=== PATIENT | female | born 1955 | race Caucasian/White ===

== ENCOUNTER 2019-04-07 14:18 | Inpatient (IN) | payer OTHER, BC ==
[~2019-04-07] VITALS: Ht 167.6 cm; Wt 125.2 kg
--- NOTE | ~2019-04-07 | HC ---
[facility] [place] [address] [place] [address] CONSULTATION Name: MARVEL CID Room #: 457-P [facility] IN ..#: [id number] Admission: 04/07/19 Attend Phys: Chiquita Lozano MD Discharge: Date of : 57 Report #: [id number] THIS REPORT FOR: //name// CC: BRENDEN physician/PCP Chiquita Lozano DATE OF SERVICE: 04/09/2019 WOUND CARE CONSULTATION REQUESTING PHYSICIAN: Dr. Lozano. CHIEF COMPLAINT: Multiple skin abscesses. HISTORY OF PRESENT ILLNESS: This is a 63-year-old white female with longstanding history of poorly controlled diabetes, who was admitted through the Emergency Department for multiple boils and abscesses throughout her body, specifically in her gluteal region and right posterior thigh. The patient had I and D performed of the right thigh wound by the primary care physician. We have been asked to see the patient for further care of the rest of the superficial abscesses. The patient states she has had these for several weeks if not months. They do cause her some mild pain, but more specifically itching. The patient states that she denies fevers or chills. The patient has not tried anything specifically topically for these, but has been on antibiotics since she was admitted to the hospital 48 hours ago. The patient was seen by General Surgery, who performed an ultrasound of the right thigh and it was felt that there was nothing else that need to be drained. PAST MEDICAL HISTORY: Significant for type 2 diabetes, significant peripheral diabetic neuropathy, diabetic retinopathy, obesity, fibromyalgia, hypothyroidism, hyperlipidemia. CURRENT MEDICATIONS: Multiple, I reviewed the patient's medication list. DRUG ALLERGIES: PENICILLIN AND CODEINE. SOCIAL HISTORY: The patient smokes 1 pack of cigarettes daily. Denies alcohol use. FAMILY HISTORY: Not pertinent to current medical condition. REVIEW OF SYSTEMS: CONSTITUTIONAL: The patient denies fevers or chills. NEUROLOGIC: The patient complains of overall generalized weakness, but no isolated weakness in arms or legs. EYES: No complaints. [facility] [address] [place] [address] CONSULTATION Name: MARVEL CID Room #: 457-P [facility] IN [facility].#: [id number] Admission: 04/07/19 Attend Phys: Chiquita Lozano MD Discharge: Date of : 57 Report #: [id number] ENT: No complaints. CARDIAC: The patient denies chest pain, palpitations or peripheral edema. RESPIRATORY: The patient denies shortness of breath, cough or wheezes. GASTROINTESTINAL: The patient denies nausea, vomiting, abdominal pain. GENITOURINARY: The patient denies urgency or frequency. MUSCULOSKELETAL: No complaints. SKIN: There are multiple superficial abscesses/folliculitis over bilateral gluteal region with fungal rash as well as one discrete abscess on the right posterior medial thigh. PHYSICAL EXAMINATION: VITAL SIGNS: Temperature 36.9, pulse 78, respirations 14, BP 136/93. GENERAL: This is an alert and oriented x 3, pleasant, morbidly obese white female who is in no obvious distress. HEENT: Normocephalic, atraumatic. Mucous membranes are dry. Pupils are round. Sclerae white. NECK: Supple, nontender. LUNGS: Clear. HEART: Regular. ABDOMEN: Obese, soft, nontender. EXTREMITIES: There are a few scattered superficial abscesses on the abdominal wall, which are slightly tender and indurated. Over the gluteal region, there are multiple areas of folliculitis and some discrete small superficial abscesses with significant amount of induration, but no fluctuance. There is a fungal rash noted in the gluteal region as well. EXTREMITIES: The patient moves all extremities without difficulty. On the right posterior medial thigh, there is an area of previously incised abscess, which has minimal bloody drainage without fluctuance. Distal pulses are intact. NEUROLOGIC: Cranial nerves 2-12 grossly intact. Motor and sensory grossly intact. LABORATORY DATA: White count 7.6, hemoglobin 11.2. Sed rate 104, BUN 12, creatinine 0.7, hemoglobin A1c is 10.3, albumin is 2.7. Soft tissue ultrasound of the right posterior thigh bilateral gluteal regions reveals no significant areas for drainage. IMPRESSION: 1. Multiple superficial abscesses/folliculitis bilateral gluteal region and right posterior medial thigh. 2. Diabetes mellitus type 2. 3. Morbid obesity. 4. Protein-calorie malnutrition - severe, albumin 2.7. 5. History of fibromyalgia. 6. Fungal rash in the gluteal region. PLAN: At this time, we will start Lotrisone cream for the fungal rash in the [address] [address] CONSULTATION Name: MARVEL CID Room #: 457-P [facility] IN M.R.#: [id number] Admission: 04/07/19 Attend Phys: Chiquita Lozano MD Discharge: Date of : 57 Report #: [id number] gluteal region twice daily. The patient will continue on IV antibiotics at this time. There are no signs of any abscess that needs to be drained at this time. We will try to maximize patient's oral protein supplementation for healing. We will utilize physical and occupational therapy for strengthening and continue all other current medications. By: [id number] Ajith Pham MD /chaya
[~2019-04-07 14:18] MED LIST: AMITRIPTYLINE150 MG PO; CLARITIN10 MG PO; COLACE100 MG PO; CYMBALTA30 MG PO; CYMBALTA60 MG PO; FENTANYL PA50 MCG/HR TRANSDERM; GLUCOTROL5 MG PO; KLONOPIN1 MG PO; LEVAQUIN 500 M500 M1 PO; LEVOTHYROXIN0.075 MG PO; LIDODERM 5%1 PATC1 TRANSDERM; LYRICA100 MG PO; METFORMIN HCL500 MG PO; OMEPRAZOLE20 M2 PO; OSENI 25-15 MG1 EACH PO; OXYCONTIN10 M1 PO; TERBINAFINE HC250 MG PO; TRAMADOL 50 MG50 MG PO; TRAZODONE 150150 M1 PO; ULTRAM 50MG TAB50 MG PO; VALACYCLOVIR1000 MG PO; ZESTORETIC 10-1 EACH PO
[2019-04-07 14:21] VITALS: BP 153/87
[2019-04-07] MEDS ORDERED: LIPITOR 20 MG T20 M1 PO (15:10)
[2019-04-07] MEDS ORDERED: GLIMEPIRIDE4 MG PO (15:11)
[2019-04-07] MEDS ORDERED: NAPROSYN500 M1 PO (15:12)
[2019-04-07] MEDS ORDERED: NEURONTIN 300M300 M2 PO (15:13)
[2019-04-07] MEDS ORDERED: FLEXERIL PO (15:15)
[2019-04-07] MEDS ORDERED: TRULICITY0.75 MG/0. SUBQ (15:16)
[2019-04-07] MEDS ORDERED: REMERON15 M2 PO (15:16)
[2019-04-07 16:11] LABS: URINE BILIRUBIN NEGATIVE (Negative); URINE BLOOD NEGATIVE (Negative); URINE CLARITY CLEAR; URINE COLOR YELLOW; URINE GLUCOSE-RANDOM* 3+ (Negative); URINE KETONES NEGATIVE (Negative); URINE LEUKOCYTES-REFLEX TRACE (Negative); URINE NITRITE-REFLEX NEGATIVE (Negative); URINE PROTEIN (DIPSTICK) NEGATIVE (Negative); URINE UROBILINOGEN 0.2 E.U./dl (0.2-1.0)
[2019-04-07 16:18] LABS: AMP/METHAMP POSITIVE (Negative); BARBITURATES Negative (Negative); BENZODIAZEPINES Negative (Negative); COCAINE Negative (Negative); METHADONE Negative (Negative); OPIATES Negative (Negative); PCP Negative (Negative)
[2019-04-07 16:40] LABS: ABSOLUTE NEUTROPHILS 10.4 thou/uL (1.4-8.2); BASOPHILS 0.6 % (0.0-2.0); HEMATOCRIT 40.9 % (37.0-47.0); HEMOGLOBIN 13.2 gm/dL (12.0-15.0); LYMPHOCYTES 12.9 % (24.0-44.0); MCH 27.4 pg (26.0-34.0); MCHC 32.4 g/dL (28.0-37.0); MCV 84.5 fL (80.0-100.0); MONOCYTES 5.1 % (1.0-8.0); PLATELET COUNT 472 thou/uL (150-400); POLYS 80.4 % (36.0-66.0); RBC 4.84 mil/uL (4.20-5.00); RDW 14.3 % (10.5-14.5)
[2019-04-07 16:47] LABS: CALCIUM 8.7 mg/dL (8.5-10.1); POTASSIUM 3.8 mmol/L (3.5-5.1)
[2019-04-07 16:52] LABS: ALBUMIN 2.7 g/dL (3.4-5.0); TOTAL BILIRUBIN 0.3 mg/dL (<0.1-1.0); TOTAL PROTEIN 8.6 g/dL (6.4-8.2)
[2019-04-07 18:03] VITALS: BP 159/96
[2019-04-07 18:53] VITALS: BP 174/86
[2019-04-07 19:24] VITALS: BP 152/81
--- NOTE | 2019-04-07 19:30 | NUR ---
Pt. admitted to the unit from the emergency room accompanied by staff. She was able to transfer from the cart to the bed with one assist. Ad- mission assessment and history is completed. Pt. oriented to staff and room. Bed alarm is on.
[2019-04-08 00:06] VITALS: BP 126/66
[2019-04-08 03:12] VITALS: BP 126/71
[2019-04-08 05:07] LABS: IgG 1933 mg/dL (700-1600); IgM 91 mg/dL (26-217)
--- NOTE | 2019-04-08 05:33 | NUR ---
Pt. rested quietly at intervals during the night when checked on during frequent rounds. She was given pain meds (see emar) for c/o back pain and a headache with some relief noted. Pictures taken of her multiple boils (poc). Nystatin cream applied to red candi area and up under bilateral breasts. Bed alarm is on.
[2019-04-08 06:08] LABS: IgA 875 mg/dL (87-352)
[2019-04-08 06:32] LABS: HEMATOCRIT 35.2 % (37.0-47.0); HEMOGLOBIN 11.3 gm/dL (12.0-15.0); MCH 27.1 pg (26.0-34.0); MCV 84.9 fL (80.0-100.0); RBC 4.15 mil/uL (4.20-5.00); RDW 14.5 % (10.5-14.5); WBC 8.8 thou/uL (4.0-11.0)
[2019-04-08 06:48] LABS: CALCIUM 8.1 mg/dL (8.5-10.1); CREATININE 0.9 mg/dL (0.6-1.0); POTASSIUM 3.3 mmol/L (3.5-5.1)
[2019-04-08 08:06] VITALS: BP 110/69
[2019-04-08 11:15] VITALS: BP 123/75
--- NOTE | 2019-04-08 11:31 | NUR ---
WOUND CARE NOTE, BLISTERING WOUNDS RIGHT THIGH AND R BUTTOCKS AREA. SCANT DRAINAGE FROM BUTTOCK WOUND, FAIR AMT THIGH WOUND W/ ERYTHEMA PRESENT, RECOMMEND CLEANSING W/ NS AND APPLY BORDER FOAM DRSG DAILY AND PRN, PT COOPERATIVE W/ CARE, DRYING MACHINE OPERATOR PACKAGE YARNS INFORMED
--- NOTE | 2019-04-08 14:09 | NUR ---
Assess due to RD consult received for diabetes. Pt admitted with sepsis, and boils to skin which have required drainage today. Hx DM, unknown control-endocronologist pending eval. Wt extreme class III obesity, BMI 44.7. Pt just returned from procedure and was being attended to by staff. BG 171-186. Will follow up again tomorrow 04/09 to see if pt has any questions regarding diet for diabetes. Otherwise presents low nutrition risk
[2019-04-08 14:45] VITALS: BP 138/75
--- NOTE | 2019-04-08 16:04 | NUR ---
Assumed pt care at 7am.Assessment completed.vss.Pt wanted to eat and drink as soon as possible but there wasn't any order for diet.Dr Sharp noted and okay pt to eat.Breakfast ordered and given.Around 10am,received call from Dr Shea that he will seept later today and decide on taking her to surgery in am.Drsg change done by rn team leader and mimi freedman nsg student.Tramadol student.Tramadol given for generalized pain with complete relief.Dr Cole here,order noted.Will continue to monitor.
[2019-04-08 20:25] VITALS: BP 141/87
[2019-04-08 23:07] LABS: GLYCOHEMOGLOBIN (HGB A1C) 10.6 % (4.8-5.6)
[2019-04-09 00:08] LABS: GLYCOHEMOGLOBIN (HGB A1C) 10.3 % (4.8-5.6)
--- NOTE | 2019-04-09 05:05 | NUR ---
PT IS A/O X4.PT COMPLAIN OF PAIN AND MANAGED WITH MORPHINE.PT IS ACHS ACCUCHCEKS.PT IS UP TO BSC WITH SBA.PT NPO FROM MIDNIGHT.CONTINUE POC
[2019-04-09 05:46] LABS: CALCIUM 8.4 mg/dL (8.5-10.1); CREATININE 0.7 mg/dL (0.6-1.0); MAGNESIUM 1.4 mg/dL (1.8-2.4)
[2019-04-09 05:50] LABS: HEMATOCRIT 35.4 % (37.0-47.0); HEMOGLOBIN 11.2 gm/dL (12.0-15.0); MCH 27.1 pg (26.0-34.0); MCHC 31.7 g/dL (28.0-37.0); MCV 85.5 fL (80.0-100.0); RBC 4.14 mil/uL (4.20-5.00); RDW 14.1 % (10.5-14.5); WBC 7.6 thou/uL (4.0-11.0)
[2019-04-09 06:08] LABS: POTASSIUM 4.3 mmol/L (3.5-5.1)
--- NOTE | 2019-04-09 08:08 | HC ---
[facility] [place] [address] [place] [address] CONSULTATION Name: MARVEL CID Room #: 457-P [facility] IN .R.#: [id number] Admission: 04/07/19 Attend Phys: Chiquita Lozano MD Discharge: Date of : 57 Report #: [id number] THIS REPORT FOR: //name// CC: BRENDEN physician/PCP PRIMARY CARE Chiquita Lozano DATE OF SERVICE: 04/08/2019 ENDOCRINE CONSULTATION NOTE CONSULTING PHYSICIAN: Dr. Chiquita Lozano REASON FOR CONSULTATION: Uncontrolled type 2 diabetes mellitus, hypothyroidism. HISTORY OF PRESENT ILLNESS: This is a 63-year-old female patient whose medical background is significant for multiple medical issues, including type 2 diabetes mellitus, severe peripheral diabetic neuropathy, fibromyalgia and hypothyroidism. The patient presented yesterday with complaints of back pain and diffuse boils and abscesses throughout her body, but especially with a prominent one over the back of her right thigh and buttock. It seems that she has been dealing with these for a while. When asked specifically about type 2 diabetes mellitus, the patient indicated that she has had dealt with diabetes for many years. She is typically maintained on a regimen of metformin 1000 mg b.i.d., glimepiride 4 mg daily, in addition to Trulicity 0.75 mg weekly. She indicates that she has not been able to obtain Trulicity for over a month due to her falling into the doughnut hole and not being able to afford it. She does not check her blood glucose at home, whatsoever, due to painful neuropathy, but she denies issues with hypoglycemia symptoms. Also, the patient has severe peripheral diabetic neuropathy that is disruptive, painful and causes a great deal of discomfort for her,. She is maintained on gabapentin at a dose of 1200 mg b.i.d., but without much relief. Also, the patient notes issues pertaining to diabetic retinopathy and notes that she has had some ophthalmologic interventions performed over the years. The patient is not aware of difficulties pertaining to diabetic nephropathy or renal insufficiency. She has hyperlipidemia and is maintained on atorvastatin therapy for that. The patient has been hypothyroid for over 10 years and is currently on levothyroxine 75 mcg daily. The patient indicates that she is compliant with the intake of her levothyroxine. She has been fatigued and tired lately. She [address] [address] CONSULTATION Name: MARVEL CID Room #: 457-P [facility] IN ..#: [id number] Admission: 04/07/19 Attend Phys: Chiquita Lozano MD Discharge: Date of : 57 Report #: [id number] denies significant body weight changes, but she is obese at baseline. REVIEW OF SYSTEMS: CONSTITUTIONAL: Fatigue, tiredness, intermittent issues with subjective fever. No significant body weight changes. HEENT: Intermittent issues with sore throats, but not sinus pain or ear drainage. PULMONARY: Occasional shortness of breath and cough, but no hemoptysis. CARDIAC: No chest pain, intermittent palpitations, leg edema. GASTROINTESTINAL: Occasional nausea, but no vomiting, alternating bowel movement changes. No hematemesis. NEUROLOGY: Occasional dizziness, lightheadedness, but no loss of consciousness or seizure activity. She has baseline severe peripheral diabetic neuropathy that is not responsive to gabapentin. DERMATOLOGIC: Diffuse boils and abscesses, painful, most prominent over the right upper thigh and buttock. PSYCHIATRIC: Depressed mood and anxiety. She has been particularly stressed out about the of her sister earlier this year. Otherwise, review of systems noncontributory other than those mentioned in HPI. PAST MEDICAL HISTORY: 1. Type 2 diabetes mellitus. 2. Diabetic retinopathy. 3. Peripheral diabetic neuropathy. 4. Hypothyroidism. 5. Hyperlipidemia 6. Obesity. 7. Depression, anxiety. 8. Recurrent herpes. 9. Fibromyalgia. OUTPATIENT MEDICATIONS: Include levothyroxine 75 mcg daily, metformin 1000 mg b.i.d., omeprazole 20 mg daily, loratadine 10 mg daily, Klonopin 1 mg q. 8 hours p.r.n. anxiety, atorvastatin 20 mg daily, glimepiride 4 mg daily, naproxen 1 tab b.i.d., gabapentin 1200 mg p.o. b.i.d., Flexeril 10 mg b.i.d., Remeron 15 mg at bedtime, Trulicity 0.75 mg weekly that she has not obtained in over a month. ALLERGIES: PENICILLIN AND CODEINE. FAMILY HISTORY: Noted for extensive heart disease as per the patient. SOCIAL HISTORY: The patient smokes daily over 1 pack per day. Denies use of alcohol or illicit drugs. PHYSICAL EXAMINATION: [facility] [address] [place] [address] CONSULTATION Name: MARVEL CID Room #: 457-P [facility] IN ..#: [id number] Admission: 04/07/19 Attend Phys: Chiquita Lozano MD Discharge: Date of : 57 Report #: [id number] GENERAL: This is a female patient who is not in apparent pain or distress. She seems to lie comfortably in bed. VITAL SIGNS: Blood pressure is 126/71, heart rate is 91 beats per minute, respiration is 17 per minute, temperature is 37.2 degrees Celsius. CONSTITUTIONAL: The patient appears comfortable, not in apparent pain or distress. HEENT: Anicteric sclerae. Intact extraocular motions. NECK: Supple, without JVD, carotid bruits or lymphadenopathy. I do not appreciate thyromegaly. CHEST: Noted for distant breath sounds with scattered rales, but not wheezes or crackles. HEART: Regular rate and rhythm without murmurs or gallops. ABDOMEN: Obese, but soft and lax without tenderness or organomegaly. She has active bowel sounds. EXTREMITIES: Lower extremity exam noted for edema. Stasis dermatitis. No skin breaks or ulcerations. NEUROLOGIC: Awake, alert and oriented to time, place and person. The remainder of her examination is nonfocal other than for sensory deficits over both feet. PSYCHIATRIC: Appropriate, interactive, answers my questions with ease, but when her sister came up, she was tearful and crying. Otherwise, normal mood and affect. LABORATORY RESULTS: On arrival, blood glucose was 313 and has since dropped to 186 mg/dL this morning. Sodium 137, potassium 3.3, chloride 104, CO2 of 26, anion gap 7, BUN 17, creatinine 0.9, AST 14, lipase 71, total bilirubin 0.3, direct bilirubin 0.1, calcium 8.1, phosphorus 4.5, alkaline phosphatase 167, ALT 15, total protein 8.6, albumin 2.7, GFR 63. Lactic acid 3. White blood count 8.8, hemoglobin 11.3, hematocrit 35.2, platelets 388. ASSESSMENT AND PLAN: 1. Type 2 diabetes mellitus. As noted above, the patient has had a longstanding history of type 2 diabetes mellitus that has been complicated by multiple complications including severe neuropathy and retinopathy. The patient has had significant therapeutic interruptions in the form of complete cessation of Trulicity. Also, she has no blood glucose data, whatsoever, that are home based and as such does not provide insight into the degree of control, but admitted to her past hemoglobin A1c's reflecting poor control. I will start by obtaining a hemoglobin A1c to better assess her therapeutic needs and her standing at the present time. I saw that an order for Lantus 10 units q.p.m. was placed for the patient. I will raise that to 18 units and resume treatment with metformin. I actually believe that the patient might be better served by going on insulin therapy as an outpatient as well, especially with cost and access issues which will make GLP-1 analogue traces quite difficult to obtain and maintain. [address] [address] CONSULTATION Name: JOSE ROBERTOMARVEL A Room #: 457-P [facility] IN .R.#: [id number] Admission: 04/07/19 Attend Phys: Chiquita Lozano MD Discharge: Date of : 57 Report #: [id number] In the immediate setting, as I await the hemoglobin A1c result, I will resort to Lantus insulin 18 units q.p.m., Humalog supplemental scale low intensity, metformin 1000 mg b.i.d., in addition to blood glucose monitoring a.c. and at bedtime. 2. Hypothyroidism. The patient has a longstanding history of hypothyroidism and is maintained on levothyroxine 75 mcg daily. I will obtain a TSH and free T4 to assess the adequacy of this dosage and adjust as needed. 3. Hyperlipidemia. The patient has hyperlipidemia and has been on a stable regimen of atorvastatin 20 mg daily, will maintain the same. 4. Diabetic neuropathy. The patient has severe peripheral neuropathy that has been disruptive and had caused her a great deal of impairment for her life quality. I will maintain the current therapy with gabapentin at a dose of 1200 mg b.i.d. 5. Cellulitis, abscess. The patient presents with extensive skin infections and had an I and D of her upper right thigh abscess yesterday. She is currently on antibiotic therapy and will be followed by the wound care team closely. I certainly appreciate this consultation by Dr. Lozano. ADDENDUM I have reviewed the patient's clinical and laboratory data as well as her historic data via her electronic chart for well over 35 minutes. <ELECTRONICALLY SIGNED> By: Kings Garcia MD 04/09/19 [id number] Kings Garcia MD /nt
[2019-04-09 08:24] VITALS: BP 136/93
--- NOTE | 2019-04-09 10:02 | NUR ---
Nutrition: RD attempted follow up again today for nutrition education/questions regarding DM. Pt was on commode the first attempt and second attempt pt was very angry and stated now was not a good time and that she didn't want to talk to anyone. Will attempt education at a later date, closer to discharge. A1c came back very elevated at 10.3% per 04/08 results. She continues on 1000 mg metformin BID, Humalog 75/15 BID, plus glimepiride and SSI. Is NPO for possible surgery this morning per EMR.
--- NOTE | 2019-04-09 12:28 | NUR ---
WOUND CARE F/U pt sitting up on side of bed waiting for lunch, declined wound care at this time since she was not able to eat breakfast, billing and accounting staff assistant present, will change drsg later today
--- NOTE | 2019-04-09 15:13 | NUR ---
INITIAL ASSESSMENT: Received consult. SW reviewed chart and spoke with nursing and attending physician. Pt was admitted from home due to sepsis/boils. Pt with back pain and multiple abscesses on her back. Pt in isolation for MRSA. Pt is currently on IV abx. Pt was scheduled to have I&D today. Procedure was cancelled by general surgery. SW met with pt at bedside. Pt asking to get on the commode and asks to speak with SW at a later time. Per chart, pt lives at home. Prior to admission, pt was independent with ADLs. Pt has used [facility] in the past for wound care. SW to follow up with pt at later time to complete assessment. SW is following to assist as needed with discharge planning.
--- NOTE | 2019-04-09 17:34 | NUR ---
ASSUMED PT CARE AT 7AM.PT IN BED VERY ANGRY AND FRUSTRATED FOR BEEN NPO. SHE SAID SHE EMI'T DO WITHOUT FOOD.ASSESSMENT COMPLETED. VSS.PT LEFT FOR US EARLY THIS AM AND RETURNED SOME MINUTES LATER.RECEIVED CALL FROM DR GAMEZ THAT PT SURGERY WAS CAMCELLED FOR TODAY.LUNCH ORDERED AND GIVEN.PT NOW APPEARED TO BE HAPPY AFTER EATING LUNCH.ALL SCHEDULED MEDS GIVEN POST US. DR HARRIS AND GERMAIN HERE,ORDER NOTED.PT WAS PLACED IN CONTACT ISOLATION. TRAMADOL GIVEN FOR GENERALIZED BODY ACHE.PT HAS LARGE STOOL LATER THIS EVENING AND PERICARE GIVEN.PT REFUSED DRSG CHANGE FROM WOUNDCARE RN. WILL CONTINUE TO MONITOR.
--- NOTE | 2019-04-09 19:01 | HC ---
[facility] [place] [address] [place] [address] CONSULTATION Name: MARVEL CID Room #: 457-P [facility] IN ..#: [id number] Admission: 04/07/19 Attend Phys: Chiquita Lozano MD Discharge: Date of : 57 Report #: [id number] THIS REPORT FOR: //name// CC: BRENDEN physician/PCP Chiquita Lozano DATE OF SERVICE: 04/08/2019 INFECTIOUS DISEASE CONSULTATION REASON FOR CONSULTATION: I was asked to evaluate concerning multiple soft tissue abscesses. HISTORY OF PRESENT ILLNESS: A 63-year-old morbidly obese woman, diabetic with multiple skin abscesses. Onset was several days ago. She has had low-grade fever and chills, has pain in her back and multiple lesions throughout. She has been using methamphetamines. Drug screen was positive. No prior history of such skin lesions. Also, has intertrigo beneath her breasts and in her groin. PAST MEDICAL HISTORY: Diabetes, thyroid disease, chronic pain, anxiety and depression, recurrent herpes simplex. ALLERGIES: CODEINE, PENICILLIN. MEDICATIONS: As noted on her MAR, which were reviewed. Her home medications included levothyroxine, omeprazole, metformin, loratadine, clonazepam, Naprosyn, atorvastatin, glimepiride, gabapentin, Flexeril, mirtazapine, Trulicity and tramadol. Currently on vancomycin, meropenem and did receive a dose of fluconazole. FAMILY HISTORY: Noncontributory. SOCIAL HISTORY: Nonsmoker, no alcohol use reported. REVIEW OF SYSTEMS: No cough, sputum, nausea, vomiting, diarrhea or dysuria. Also, reports low back pain. Apparently, he had MRI imaging at [facility], which showed no surgical changes. PHYSICAL EXAMINATION: VITAL SIGNS: She is afebrile and hemodynamically stable. Maximum temperature was 38.3. GENERAL: She was obese. She had multiple skin abscesses throughout, mostly to her torso, buttock and thighs. Perineum also had lesions. Her right thigh had a very large area that was draining purulent material. These areas were extremely tender. No palpable adenopathy. HEENT: Eyes, without scleral icterus. Mouth without mucositis. [facility] [address] [address] CONSULTATION Name: MARVEL CID Room #: 457-P [facility] IN ..#: [id number] Admission: 04/07/19 Attend Phys: Chiquita Lozano MD Discharge: Date of : 57 Report #: [id number] NECK: Supple. LUNGS: Clear. HEART: Regular, without murmur, gallop or rub. ABDOMEN: Obese, soft and nontender with no hepatosplenomegaly or mass appreciated. GENITOURINARY: External genitalia with significant intertrigo. She does report having urinary incontinence. Also had intertrigo beneath both breasts. RECTAL: Not performed. EXTREMITIES: Without clubbing, cyanosis or edema. PSYCHIATRIC: Mood was mildly anxious. LABORATORY STUDIES: Blood glucose was in the 200s. Hemoglobin 11, WBC 8. Sedimentation rate 104, creatinine 0.9. Drug screen positive for methamphetamines. Blood cultures are pending. IMPRESSION: 1. A 63-year-old with diabetes, multiple soft tissue abscesses, suspecting methicillin resistant Staphylococcus aureus. She has intertrigo likely yeast dermatitis. 2. Diabetes. 3. Recreational drug use, methamphetamines. 4. Anxiety disorder. 5. Obesity. RECOMMENDATIONS: 1. Continue broad antibiotic coverage, pending culture results. Obtain a wound culture for aerobic and anaerobic bacteria. 2. Surgical evaluation for incision and drainage procedure of the larger abscesses. 3. Control diabetes. 4. Hibiclens showers. 5. Nasal mupirocin. 6. Avoid recreational drugs. 7. Weight loss. <ELECTRONICALLY SIGNED> By: Slim Bishop MD 04/09/19 [id number] Slim Bishop MD /nt
[2019-04-09 21:18] VITALS: BP 145/79
--- NOTE | 2019-04-10 04:11 | NUR ---
ASSESSMENT: PT REMAIN ALERT AND ORIENT TIMES FOUR. UP TO BSC WITH SBA. PT DENIES PAIN, SOB AND N/V. CREAMS AND OINTMENTS APPLIED TO BOILS. OPTIFOAM APPLIED TO SOME BOILS, PT REFUSED LISPRO INSULIN TONIGHT STATING THAT SHE WOULD BE ALRIGHT. HS BS WAS 112. TOLERATING PO INTAKE. VSS, AFEBRILE. REMAINS IN ISOLATION FOR MRSA BOILS. CREAMS AND OINTMENTS AT THE BEDSIDE IN A PLASTIC BAG. NEW IV INITIATED ON THE LEFT MID ARM. IVF INFUSING WITHOUT DIFFICULTY. SLOW PROGRESS TOWARDS DC GOALS, WILL CONTINUE TO MONITOR.
[2019-04-10 09:18] VITALS: BP 152/81
--- NOTE | 2019-04-10 10:10 | NUR ---
Followup again for nutrition education for poorly controlled diabetes. Pt highly anxious regarding finances, health, spouse illness, smoking cessation, etc...Does not want diet education at this time as cannot focus. States she sees Digna Baxter CDE on occassion. Encouraged followup with CDE and or RDN as outpatient for further diet education needs.
[2019-04-10 10:34] LABS: HEMATOCRIT 35.8 % (37.0-47.0); HEMOGLOBIN 11.6 gm/dL (12.0-15.0); MCH 27.1 pg (26.0-34.0); MCHC 32.4 g/dL (28.0-37.0); MCV 83.7 fL (80.0-100.0); RBC 4.28 mil/uL (4.20-5.00); WBC 7.5 thou/uL (4.0-11.0)
[2019-04-10 10:43] LABS: CALCIUM 8.7 mg/dL (8.5-10.1); CREATININE 0.7 mg/dL (0.6-1.0); MAGNESIUM 1.6 mg/dL (1.8-2.4); POTASSIUM 3.7 mmol/L (3.5-5.1)
--- NOTE | 2019-04-10 12:04 | NUR ---
WOUND CARE F/U wound right upper thigh closed, dry, no drainage, healing, wound right buttocks area w/ scant pinkish drainage, healing, abd wounds closed no drainage, more cooperative today, rash under breasts and lower back improving, staff appraiser informed recommendations: cont current tx
[2019-04-10 19:36] VITALS: BP 157/73
--- NOTE | 2019-04-10 20:05 | NUR ---
PT A&OX4, VSS, DENIES PAIN. NO SIGNS OF DISTRESS. WOUND CARE COMPLETED. PATIENT REMAINS ON ISOLATIONS. WILL CONTINUE TO MONITOR.
--- NOTE | 2019-04-11 02:17 | NUR ---
ASSUMED CARE FROM DAY SHIFT PT RESTING IN BED CRYING OFTEN WHILE TALKING ABOUT HER HOME LIFE AND HOW STRESSFUL IT IS FOR HER, MEDICATION GIVEN ANTI-ANXIETY MEDICATION GIVEN TALK WITH PT IN LENGTH AND [place] PT TO GET SUPPORT FROM THERAPIST. DISCUSSED PLAN OF CARE AGREEABLE , RESTED WELL THROUGHOUT HOURLY ROUNDS WILL REPORT CHANGES OR ABNORMAL FINDINGS.
[2019-04-11 06:41] LABS: HEMATOCRIT 36.2 % (37.0-47.0); HEMOGLOBIN 11.7 gm/dL (12.0-15.0); MCH 27.3 pg (26.0-34.0); MCHC 32.3 g/dL (28.0-37.0); MCV 84.4 fL (80.0-100.0); RBC 4.29 mil/uL (4.20-5.00); RDW 14.4 % (10.5-14.5); WBC 7.1 thou/uL (4.0-11.0)
[2019-04-11 06:47] LABS: CALCIUM 8.7 mg/dL (8.5-10.1); CREATININE 0.7 mg/dL (0.6-1.0); MAGNESIUM 1.3 mg/dL (1.8-2.4); POTASSIUM 3.6 mmol/L (3.5-5.1)
[2019-04-11 07:15] VITALS: BP 170/91
[2019-04-11 16:41] VITALS: BP 148/89
--- NOTE | 2019-04-11 18:04 | NUR ---
AA0X4 PLEASANT BUT TEARFUL AT TIMES WHEN SPEAKING ABOUT ILL SPOUSE AND DAUGHTER. UP TO BSC WITH STEADY GAIT. LUNGS CLEAR ON ROOM AIR. LEFT UPPER ARM IV WITH NS AT 125CC/HR. INSULIN GIVEN PER SLIDING SCALE PROTOCOL GOOD APPETITE FOR MEALS. MORPHINE FOR PAIN THEN TYLENLOL FOR HEAD ACHE.
[2019-04-11 19:37] VITALS: BP 145/80
--- NOTE | 2019-04-12 04:03 | NUR ---
ASSUMED CARE OF PT AT 1900HRS. PT IS AOX4 AND LETS NEEDS BE KNOWN. FALL PRECAUTION IN PLACE. PT COMPLAINED OF PAIN AND WAS TREATED WITH PRN PAIN MEDS. BLOOD GLUCOSE WAS WNL FOR HS. PT STATES THAT HER BS HAS NEVER BEEN THIS LOW (87). PT WAS ANXIOUS, CLAMMY AND HOT/DIAPHORATIC. BS WAS RECHECKED X2 AND NO HYPOGLYCEMIA NOTED. PT DID NOT SLEEP COMFORTABLY THIS SHIFT. VSS AND NO S/S OF ACUTE DISTRESS. WLL CONTINUE TO BELKIS.
[2019-04-12 04:19] VITALS: BP 171/79
[2019-04-12 08:39] VITALS: BP 142/77
--- NOTE | 2019-04-12 16:58 | NUR ---
ASSUMED CARE AT 0700. PT C/O LEG PAIN AND WAS MEDICATED PER ORDERS. ORTHO DOCTOR ORDERED L LEG SLEEVE BRACE. RAILROAD FIRER/FIREMAN NOTIFIED OF NEED. HOUSE SUP STATED TO CALL 5N AND CHECK WITH PT. PT HAS ALREADY LEFT FOR THE DAY. WILL REPORT TO ONCOMING SHIFT THAT PT NEEDS BRACE ON SATURDAY. PT STATES PARTIAL RELIEF WITH IV PAIN MEDICATION.
[2019-04-12 17:29] VITALS: BP 162/78
[2019-04-12 20:01] VITALS: BP 162/71
[2019-04-13 00:56] VITALS: BP 141/74
[2019-04-13 06:31] VITALS: BP 152/83
--- NOTE | 2019-04-13 07:39 | NUR ---
ASSUMED CARE AROUND 1930. AXOX3. ISO MAINTAINED. PERSISTNET JOINT PAIN. VSS. NO S/S ACUTE DISTRESS NOTED OR REPORTED AT THIS TIME. CARE TRNASFERRED TO DAY RN AT THIS TIME.
[2019-04-13 08:48] VITALS: BP 161/78
--- NOTE | 2019-04-13 13:20 | NUR ---
SW reviewed chart and spoke with nursing and attending physician. Ortho consulted to evaluate pt due to left knee pain. Pt to have a knee brace ordered. Therapy ordered to evaluate pt for discharge needs. Recommendation made for pt to have a roller walker. SW notified [facility] liaison, who delivered pt's walker to her room. Script obtained from attending physician. Plan is for pt to discharge home when medically stable. [facility] is following to assist as needed with discharge planning.
[2019-04-13 15:18] VITALS: BP 149/87
--- NOTE | 2019-04-13 15:54 | NUR ---
DISCHARGE PLANNING. PATIENT DISCHARGING TO HOME. HOME HEALTH SERVICES REQUESTED. PATIENT REFERRAL FAXED TO [facility]. PATIENT HAS USED THEIR SERVICES IN THE PAST AND IS WANTING TO USE THEM AGAIN AT DISCHARGE. AWAITING RESPONSE FROM [facility]. FOLLOWING.
[2019-04-13] MEDS ORDERED: BACTRIM DS TAB1 EACH PO (16:15)
[2019-04-13] MEDS ORDERED: FLUCONAZOLE 10100 MG PO (16:16)
[2019-04-13] MEDS ORDERED: VOLTAREN GEL 1100 G1 TOP (16:17)
[2019-04-13] MEDS ORDERED: MUPIROCIN22 GM NASAL (16:19)
[2019-04-13] MEDS ORDERED: AMARYL2 MG PO (16:19)
[2019-04-13] MEDS ORDERED: OXYBUTYNIN 5 MG5 M1 PO (16:20)
[2019-04-13] MEDS ORDERED: HIBICLENS118 ML TOP (16:24)
[2019-04-13] MEDS ORDERED: HUMULIN 70100 UNIT/2 SUBQ (16:26)
[2019-04-13 16:33] VITALS: BP 149/87
--- NOTE | 2019-04-13 16:34 | NUR ---
PT REQUESTED SERVICES FOR FOLLOW UP IN THE COMMUNITY FOR HER INSULIN ADMINISTRATION. REFERRAL SENT TO [facility] THEY CAN ACCEPT PT FOR SERVICES UPON DC TODAY. PT WAS ISSUED A FWW FOR USE UPON DC BY PROVIDER PLUS. PT INQUIRED ABOUT HOMEMAKER SERVICES CM INDICATED THAT INSURANCE DOESN'T COVER THEM. SHE INDICATED THAT SHE [facility]OULD [facility]CT [facility] TO SEE IF HE WERE ELEGIABLE FOR ANYHTING THROUGH THEM. NURSE WAS GIVEN A CAB VOUCHER FOR COMPLETE TO ASSIST PT WITH TRANSORT HOME. NO OTHER CM INTERVENTION INDICATED. CASE CLOSED.
--- NOTE | 2019-04-13 20:20 | NUR ---
PT A&OX4, VSS, C/O OF GENERALIZED PAIN. WOUND CARE COMPLETED. PATIENT HAS HIGH ANXIETY D/T FAMILY LIFE. NO SIGNS OF DISTRESS. WILL CONTINUE TO MONITOR.
--- NOTE | 2019-04-13 22:39 | NUR ---
discharge pt discharged to home with home health, discharge packet provided and reviewed prescriptions provided with medication use and side effect information. to f/u with endocrinology in 3 weeks and pcp in 2 weeks phone numbers provided on discharge packet. Discharge wound pictures taken. Medications from home picked up from pharmacy and pt escorted to emergency room entrance to await taxi. pt anxious to dc as [place] is [place] [facility] [place] from a heroin overdose. pt advised to call [facility] in am and let them know what is happening and try to set up an appointment for them to initiate services and complete wound care and insulin management.
--- NOTE | 2019-04-14 10:38 | NUR ---
CALL RECEIVED FROM [facility]TA[facility], REQUESTING PATIENT DISCHARGE/HOME HEALTH ORDERS AND PATIENTS PCP INFORMATION. DISCHARGE ORDERS FAXED TO [facility], VERIFIED RECEIVED. PATIENTS PCP IS JIMMY ADAMES, [facility], PROVIDED TO [facility].
== END 2019-04-13 22:45 | disposition home health service (06) | DRG 871 ==
LOC: ER 14:18 → EROBS 17:27 → 4W 17:27
PROVIDERS: Emergency Medicine; Internal Medicine; ADMIT Internal Medicine
PROC: 0H98XZZ Drainage of Buttock Skin, External Approach (ICD-10-PCS; principal; 2019-04-07)
PROC: 0H9HXZZ Drainage of Right Upper Leg Skin, External Approach (ICD-10-PCS; 2019-04-07)
DX: A41.9 Sepsis, unspecified organism (principal); E43 Unspecified severe protein-calorie malnutrition; L03.312 Cellulitis of back [any part except buttock and flank]; J98.11 Atelectasis; L02.415 Cutaneous abscess of right lower limb; L03.317 Cellulitis of buttock; L02.31 Cutaneous abscess of buttock; L02.211 Cutaneous abscess of abdominal wall; Z68.41 Body mass index [BMI] 40.0-44.9, adult; E11.65 Type 2 diabetes mellitus with hyperglycemia; G89.29 Other chronic pain; M79.7 Fibromyalgia; F32.9 Major depressive disorder, single episode, unspecified; F17.200 Nicotine dependence, unspecified, uncomplicated; B95.62 Methicillin resistant Staphylococcus aureus infection as the cause of diseases classified elsewhere; B37.3 Candidiasis of vulva and vagina; L30.8 Other specified dermatitis; E03.9 Hypothyroidism, unspecified; E11.42 Type 2 diabetes mellitus with diabetic polyneuropathy; E11.319 Type 2 diabetes mellitus with unspecified diabetic retinopathy without macular edema; E78.5 Hyperlipidemia, unspecified; F15.90 Other stimulant use, unspecified, uncomplicated; L73.8 Other specified follicular disorders; E66.01 Morbid (severe) obesity due to excess calories; F41.1 Generalized anxiety disorder; N39.41 Urge incontinence; M17.12 Unilateral primary osteoarthritis, left knee; Z88.8 Allergy status to other drugs, medicaments and biological substances; Z88.0 Allergy status to penicillin; Z79.899 Other long term (current) drug therapy; Z79.84 Long term (current) use of oral hypoglycemic drugs
CPT/HCPCS: 10040